=== PATIENT | male | born 1955 | race Caucasian/White ===

== ENCOUNTER 2023-10-04 10:17 | Emergency (ER) | payer OTHER ==
[2023-10-04 10:26] VITALS: BP 127/71; PULSE 77; RESP 18; TEMP 98; BMI 25.0
== END 2023-10-04 11:24 | disposition home or self-care (01) ==
LOC: JERFT 10:17
DX: R22.0 Localized swelling, mass and lump, head (principal); R21 Rash and other nonspecific skin eruption
CPT/HCPCS: 99283-25